=== PATIENT | male | born 1955 | race Caucasian/White ===

== ENCOUNTER 2024-02-27 16:28 | Emergency (ER) | payer MEDICARE, OTHER, SELFPAY ==
[2024-02-27 16:30] VITALS: BP 191/88
--- NOTE | 2024-02-27 18:14 | ED.GENMED ---
History of Present Illness
<Patricia Moreno PA-C - Last Filed: 02/28/24 15:58>
General
Chief Complaint: Swelling
Source: patient
Exam Limitations: none
Time Seen by Provider: 02/27/24 17:41
Nursing documentation reviewed up to this point in time: agreed with
Travel History
Have you had any contact with someone who has COVID-19?: No
Do you have any symptoms of coronavirus? Fever > 100 degrees, chills, cough, shortness of breath, sore throat, loss of taste or smell, muscle aches, or headache?: No
History of Present Illness
History of Present Illness:
Patient is a 68 year old male with hx HTN, HLD, diabetes presenting to the emergency department for evaluation of bilateral lower leg swelling. Patient states swelling has been gradually worsening since . He thought at first it was
due to his salt intake which he tried to decrease without any improvement. Patient states that this has been ongoing for the past few months and he spoke to his primary care today who urged him to come to the emergency department to rule out a
blood clot. He states that legs are more swollen by the end of the day and waking up in the morning they seem somewhat improved.
Patient denies any chest pain, exertional shortness of breath or abdominal pain. He denies any numbness or tingling in lower extremities
In addition�patient does report very mild shortness of breath over the past few weeks. He is attributing this to his recent bout of bronchitis. He does have a history of asthma for which he no longer requires inhalers.
Patient has no history of blood clots. No recent travel. No recent surgeries. He does admit to living a somewhat sedentary lifestyle. Patient's sister is currently being treated for blood clots in her heart.
Review of Systems
<Patricia Moreno PA-C - Last Filed: 02/28/24 15:58>
Review of Systems
Allergies reviewed?: Yes
All Other Systems: ROS reviewed and negative except as documented in HPI and ROS
Phy Exam
<Patricia Moreno PA-C - Last Filed: 02/28/24 15:58>
Physical Exam
Physical Exam:
Vitals: Tachycardic, otherwise vital signs stable. Afebrile
General: Patient is well appearing, no acute distress
Skin: Warm and dry, no rashes or lesions
Head: Normocephalic, atraumatic
Eyes: Sclera nonicteric. EOMs intact. No nystagmus.
Throat: Protecting airway. Uvula midline
Neck: Normal ROM, no cervical spine tenderness, no meningismus
Cardiac: Regular rate and rhythm, no murmurs.
Pulm: Somewhat diminished at the bases. No wheezes, rales, rhonchi heard on exam.
Abdomen: No abdominal tenderness.
Extremities: 2+ nonpitting edema bilateral lower legs and feet. DP pulses palpable and equal bilaterally
Neuro: AAOx3. CN II-XII intact. No focal neurologic deficits.
Psychiatric: Normal affect.
Scores
<Patricia Moreno PA-C - Last Filed: 02/28/24 15:58>
Heart Failure Risk
Heart Failure Risk Score: Yes
History of Stroke or TIA: No
History of intubation for respiratory distress: No
Heart rate on ED arrival >/= 110: Yes
SaO2 <90% on arrival on room air: No
HR >/=110 during 3min walk test (or too ill to perform test): Yes
ECG has acute ischemic changes: No
Urea >/=12mmol/L (BUN 33.6mg/dL): Yes
Serum CO2>/=35mmol/L: No
Troponin I or T elevated to NC Level (0.4mg/dL): No
NT-proBNP >/=5,000ng/L (5,000pg/ml): No
HF Risk Score: 3
Admission Status: HIGH RISK 15.9% Consider SNF treatment or admission to hospital
Course
<Patricia Moreno PA-C - Last Filed: 02/28/24 15:58>
Orders/Labs/Results
Orders:
Orders
02/27/24 16:36
Electrocardiogram (*1) Urgent
Reason for Study: Chest Pain
EKG- Treatment ONCE
02/27/24 18:08
Legs, Bilateral US [US Periph Venous LOWER Ext Cornell] Urgent
Comment:
Reason For Exam: b/l lower extremity swelling, r/o clot
02/27/24 18:46
Complete Blood Count/With Diff Urgent
Comprehensive Metabolic Panel Urgent
D-Dimer Urgent
NT-proBNP Urgent
Troponin I Urgent
02/27/24 19:36
CR Chest - 2 Views Urgent
Comment:
Reason For Exam: shortness of breath, tachycardia
Abnormal Lab Results
02/27/24
18:46
RBC 4.68 L 10^6/uL
(4.70-6.10)
Hct 38.3 L %
(39.0-52.0)
RDW 15.4 H %
(11.5-14.5)
Absolute Monos (auto) 0.7 H 10^3/uL
(0.1-0.6)
Lymphocytes % 16.8 L %
(20.5-51.1)
Monocytes % 10.1 H %
(1.7-9.3)
BUN 36 H mg/dl
(9-20)
Glucose 308 H mg/dl
(70-99)
Calcium 10.3 H mg/dl
(8.4-10.2)
02/27/24 18:46
02/27/24 18:46
Vital Signs
Initial and Last Documented VS:
Initial Vital Signs
Temp Pulse Resp BP Pulse Ox
99.1 F 122 20 191/88 96
02/27/24 16:30 02/27/24 16:30 02/27/24 16:30 02/27/24 16:30 02/27/24 16:30
Last Documented Vital Signs
Temp Pulse Resp BP Pulse Ox
99.1 F 86 17 154/87 97
02/27/24 16:30 02/27/24 20:39 02/27/24 20:39 02/27/24 20:39 02/27/24 20:39
<Bhanu Mccann MD - Last Filed: 02/27/24 22:26>
Orders/Labs/Results
Orders:
Orders
02/27/24 16:36
Electrocardiogram (*1) Urgent
Reason for Study: Chest Pain
EKG- Treatment ONCE
02/27/24 18:08
Legs, Bilateral US [US Periph Venous LOWER Ext Cornell] Urgent
Comment:
Reason For Exam: b/l lower extremity swelling, r/o clot
02/27/24 18:46
Complete Blood Count/With Diff Urgent
Comprehensive Metabolic Panel Urgent
D-Dimer Urgent
NT-proBNP Urgent
Troponin I Urgent
02/27/24 19:36
CR Chest - 2 Views Urgent
Comment:
Reason For Exam: shortness of breath, tachycardia
Abnormal Lab Results
02/27/24
18:46
RBC 4.68 L 10^6/uL
(4.70-6.10)
Hct 38.3 L %
(39.0-52.0)
RDW 15.4 H %
(11.5-14.5)
Absolute Monos (auto) 0.7 H 10^3/uL
(0.1-0.6)
Lymphocytes % 16.8 L %
(20.5-51.1)
Monocytes % 10.1 H %
(1.7-9.3)
BUN 36 H mg/dl
(9-20)
Glucose 308 H mg/dl
(70-99)
Calcium 10.3 H mg/dl
(8.4-10.2)
02/27/24 18:46
02/27/24 18:46
Vital Signs
Initial and Last Documented VS:
Initial Vital Signs
Temp Pulse Resp BP Pulse Ox
99.1 F 122 20 191/88 96
02/27/24 16:30 02/27/24 16:30 02/27/24 16:30 02/27/24 16:30 02/27/24 16:30
Last Documented Vital Signs
Temp Pulse Resp BP Pulse Ox
99.1 F 86 17 154/87 97
02/27/24 16:30 02/27/24 20:39 02/27/24 20:39 02/27/24 20:39 02/27/24 20:39
<Patricia Moreno PA-C - Last Filed: 02/28/24 15:58>
MDM/Problems Addressed
Differential Diagnosis Includes:
Not limited to: Dependent edema, lymphedema, CHF, venous stasis, DVT
MDM/Problems Addressed:
Patient is a 68 year old male with presenting with worsening bilateral leg edema over the past 4-5 months. Sent by PCP to r/o blood clot. No chest pain or significant shortness of breath. Patient is hypertensive and tachycardic on arrival. Exam as
above. Bilateral 2+ nonpitting edema of lower extremities. No redness, warmth, or streaking to suggest infectious process. Good distal pulses. Lung sound mildly diminished as bases otherwise clear. No JVD. Clinically most suspicious for dependent
edema or CHF. Will check US to r/o blood clot. Will check basic labs, troponin, ekg, probnp. Plan for chest xray if US negative, CTA chest if positive for DVT.
Labs reviewed. Patient is hyperglycemic with a sugar of 308. He is currently undergoing some medication and diet adjustments for his known type 2 diabetes. Troponin normal. BNP of 62- not indicating an acute heart failure exacerbation. US shows no
evidence of DVT. Will check chest xray.
Chest xray shows no acute disease of chest. Suspect symptoms likely related to venous stasis/dependent edema. He has been hypertensive since arrival to ED and hypertensive urgency with heart failure is in differential. Patient will be referred to
cardiology for further evaluation. Short course of lasix. Considered adding beta papa to patients regimen but patient will follow-up with primary care in a few days to discuss further management. Heart rate has decreased into 80s.Blood pressure
has decreased to an acceptable range for discharge. Patient very well appearing. Stable for discharge with close primary care follow-up. Return precautions discussed.
Chronic conditions affecting care:
Hypertension, type II diabetes
Acute Exacerbation and/or Progression of Chronic Illness:
Acutely hypertensive, hyperglycemic
<Patricia Moreno PA-C - Last Filed: 02/28/24 15:58>
*Radiology
Radiology exam reviewed: preliminary read by ED provider and radiology read reviewed
*Pulse Oximetry
Patient hypoxic: no
*EKG
Interpreted by ED Provider?: Yes
EKG Intrepretation Date: 02/27/24
Interpretation: abnormal
Comparison EKG: no comparison EKG present
Heart Rate: 117
Rate: tachycardiac
Rhythm: sinus
Ischemia: no ischemia
*Tr[employer] Specialist Interpretation
Rate: tachycardiac
Interpretation: abnormal
Heart Rate: 110
Rhythm: sinus
*Critical Care Note
Total Time (30-74mins, 75-104mins- exclusive of procedures): Not Applicable
ED Attending Note
<Patricia Moreno PA-C - Last Filed: 02/28/24 15:58>
-
Portions of this chart may have been created with voice recognition software.� Occasional wrong word or��sound alike� substitutions may have occurred due to the inherent limitations of voice recognition software.
<Bhanu Mccann MD - Last Filed: 02/27/24 22:26>
ED Attending Note
Patient seen and examined by attending physician: Yes
ED Attending Note:
Pt presenting with worsening lower leg swelling over the past 5 months. Leg swelling appears to be worse at night but improves in the morning. Denies pain. Denies fever/cp/sob. Denies recent illness. Denies recent change in medications/diet.
General: well nourished male, in no acute distress. overweight. afebrile.
Heent: nc/at. eomi
Lungs: cta.
Heart: RRR. no murmur.
Abd: soft and nontender.
Neuro: aao x 3. no focal neurological deficit.
Skin: no rash. warm to touch.
Ext: b/l LE edema, nonpitting. no calf tenderness.
Psych: pleasant and cooperative.
History/exam consistent with likely venous stasis/insufficiency. However, in light of sig. elevated BP/HR, difficult to exclude potential hypertensive urgency with heart failure. As such, pt will be started on short course of lasxi, along with
referral to cardiology for further evaluation and treatment. Pt otherwise appears well without any acute distress, at time of discharge.
Discharge Plan
Departure
Patient Disposition: Home (Routine Discharge)
Date of Disposition: 02/27/24
Time of Disposition: 20:39
Patient with high blood pressure during this ER visit?: Yes
Condition: Good
Covid-19: Not Applicable
Discharge Problem:
Bilateral lower extremity edema
Instructions: Dependent Edema (DC), *DCA Heart Failure Instructions, BLOOD PRESSURE
Prescriptions:
New
furosemide [Lasix] 20 mg tablet
20 mg PO DAILY 3 Days Qty: 3 0RF
Referrals:
Levi Kenney MD [Active] - Next open appointment
Derek,Linden G., DO [Family Provider] - Follow up in 5-7 days
Activity Restrictions/Additional Instructions:
-RETURN TO THE EMERGENCY DEPARTMENT WITH ANY HIGH FEVERS, SEVERE HEADACHE, CHEST PAIN, SHORTNESS OF BREATH/DIFFICULTY SWALLOWING, WORSENING IN CURRENT SYMPTOMS, OR ANY OTHER CONCERNS
-A prescription has been sent to your pharmacy. You can take this daily for the next 3 days. Your should elevate your legs.
-As discussed your blood sugar was elevated in the emergency department today. You should continue to keep a log and follow-up with your primary care provider. In addition - you were found to be hypertensive while in the emergency department. You
should follow up with your PCP. You may require additional anti-hypertensive medications.
-You should follow-up with cardiology for further evaluation/management.
Interventions
Interventions:
*Risk Screen - Suicide Last Done: 02/27/24 16:30
*General Assessment Last Done: 02/27/24 16:30
*Neglect/Abuse Screening Last Done: 02/27/24 16:30
ED- Fall Risk Assessment Last Done: 02/27/24 18:35
*Nursing Disposition Last Done: 02/27/24 20:48
ED- Cardiac Assessment Last Done: 02/27/24 18:35
ED- Pulmonary Assessment Last Done: 02/27/24 18:35
ED-Skin Assessment Last Done: 02/27/24 18:35
Discharge Date and Time
Discharge Date/Time: 02/27/24 20:49
Print Language: [place]
[2024-02-27 18:34] VITALS: BMI 40.7
[2024-02-27 18:58] LABS: % Basophils 0.4 % (0-2); % Eosinophils 1.6 % (0-6); % Immature Granulocytes 0.4 % (0-0.5); % Lymphocytes 16.8 % (20.5-51.1); % Monocytes 10.1 % (1.7-9.3); % Neutrophils 70.7 % (42.2-75.2); Absolute Eosinophils 0.1 10^3/uL (0-0.7); Absolute Lymphocytes 1.2 10^3/uL (1.2-3.4); Absolute Monocytes 0.7 10^3/uL (0.1-0.6); Absolute Neutrophils 4.8 10^3/uL (1.4-6.5); Hematocrit 38.3 % (39.0-52.0); Mean Corp Hgb Conc. 33.9 g/dL (33.0-37.0); Mean Corpuscular Hgb 27.8 pg (27.0-31.0); Mean Corpuscular Volume 81.8 fL (80.0-94.0); Nucleated Red Blood Cells % 0 % (-); Platelet Count 208 10^3/uL (130-400); Red Blood Cell Count 4.68 10^6/uL (4.70-6.10); Red Cell Dist. Width 15.4 % (11.5-14.5); White Blood Cell Count 6.9 10^3/uL (4.8-10.8)
[2024-02-27 19:14] LABS: ALT (SGPT) 20 U/L (0-50); AST (SGOT) 24 U/L (17-59); Albumin 4.3 g/dl (3.5-5.0); Alkaline Phosphatase 66 U/L (38-126); Blood Urea Nitrogen 36 mg/dl (9-20); Calcium 10.3 mg/dl (8.4-10.2); Carbon Dioxide 25 mmol/L (22-30); Chloride 101 mmol/L (98-107); Estimated Creatinine Clearance 101 ml/min; Glucose 308 mg/dl (70-99); Potassium 4.7 mmol/L (3.5-5.1); Sodium 135 mmol/L (135-145); Total Bilirubin 0.8 mg/dl (0.2-1.3); Total Protein 6.9 g/dl (6.3-8.2); eGFR > 60.00
[2024-02-27 19:20] LABS: NT-proBNP 62.5 pg/ml; Troponin I < 0.012 ng/ml
[2024-02-27 20:39] VITALS: BP 154/87
== END 2024-02-27 20:49 | disposition home or self-care (01) ==
LOC: EMR 16:28
PROVIDERS: Physician Assistant; EMERGENCY PHYSICIAN Emergency Medicine; FAMILY PHYSICIAN Family Medicine
DX: R60.0 Localized edema (principal); I10 Essential (primary) hypertension; E78.5 Hyperlipidemia, unspecified; E11.9 Type 2 diabetes mellitus without complications
CPT/HCPCS: 99285; 71046; 80053; 83880; 84484; 85025; 85379; 93005; 93970

== ENCOUNTER → 2024-05-08 09:13 | Outpatient (REF) | payer MEDICARE, OTHER, SELFPAY | LOC: HWRCS 09:13 | PROVIDERS: ATTENDING PHYSICIAN Internal Medicine Cardiovascular Disease; FAMILY PHYSICIAN Family Medicine | DX: I10 Essential (primary) hypertension (principal) | CPT/HCPCS: 93306 ==